=== PATIENT | male | born 1965 | race Caucasian/White ===

== ENCOUNTER 2023-02-06 20:25 | Emergency (ER) | payer BC, SELFPAY ==
--- NOTE | 2023-02-06 20:26 | ECG_ITS ---
APPROVED REPORT Exam: Resting ECG HR:87 bpm ECG Measurements Heart Rate 87 AXES GA 159 P 65 QRSd 109 QRS 38 QT 361 T 35 QTc 406 Conclusion SINUS RHYTHM INDETERMINATE AXIS INCOMPLETE RIGHT BUNDLE BRANCH BLOCK [90+ ms QRS DURATION, TERMINAL R IN V1/V2, 40+ ms S IN I/aVL/V4/V5/V6] BORDERLINE ECG UNCONFIRMED REPORT Electronically signed by : Silas Velez MD 02/07/2023 07:44:18
[2023-02-06 20:30] VITALS: BP 159/114; PULSE 86; RESP 16; TEMP 37.1; O2SAT 98; BMI 27.3
[2023-02-06 20:31] VITALS: BP 159/114; PULSE 88; RESP 21; O2SAT 98
--- NOTE | 2023-02-06 20:35 | XR_ITS ---
PROCEDURE INFORMATION: Exam: XR Chest Exam date and time: 02/06/2023 9:14 PM Age: 57 years old Clinical indication: Chest wall pain; Additional info: Cp TECHNIQUE: Imaging protocol: Radiologic exam of the chest. Views: 2 views. COMPARISON: No relevant prior studies available. FINDINGS: Lungs: Minimal basilar atelectasis. Pleural spaces: Unremarkable. No pleural effusion. No pneumothorax. Heart/Mediastinum: Unremarkable. No cardiomegaly. Bones/joints: Unremarkable. IMPRESSION: Minimal basilar atelectasis.
--- NOTE | 2023-02-06 20:35 | CT_ITS ---
PROCEDURE INFORMATION: Exam: CTA Chest With Contrast Exam date and time: 02/06/2023 9:30 PM Age: 57 years old Clinical indication: Chest wall pain; Additional info: Cp, right side TECHNIQUE: Imaging protocol: Computed tomographic angiography of the chest with contrast. 3D rendering (Not supervised by radiologist): MIP and/or 3D reconstructed images were created by the technologist. Radiation optimization: All CT scans at this facility use at least one of these dose optimization techniques: automated exposure control; mA and/or kV adjustment per patient size (includes targeted exams where dose is matched to clinical indication); or iterative reconstruction. Contrast material: ISOVUE; Contrast volume: 70 ml; Contrast route: INTRAVENOUS (IV); REPORTING DATA: Count of CT and Cardiac NM exams in prior 12 months: This patient has received 0 known CTs and 0 known cardiac nuclear medicine studies in the 12 months prior to the current study. COMPARISON: CR XR CHEST 2V 02/06/2023 9:14 PM FINDINGS: Pulmonary arteries: Mild prominence of the pulmonary vasculature in the interstitium. No PE. Aorta: Unremarkable. No aortic aneurysm. No aortic dissection. Lungs: Unremarkable. No consolidation. No masses. Pleural spaces: Unremarkable. No pneumothorax. No pleural effusion. Heart: Slight prominence of the heart. Lymph nodes: Calcified left hilar lymph nodes. Bones/joints: Mild degenerative changes of the spine. Soft tissues: Unremarkable. IMPRESSION: Findings suggesting mild fluid overload versus CHF. No PE.
--- NOTE | 2023-02-06 20:35 | PC.NURSE ---
DR. TURNER PAGED FOR ED DOCTOR
--- NOTE | 2023-02-06 20:39 | CT_ITS ---
PROCEDURE INFORMATION: Exam: CT Abdomen And Pelvis With Contrast Exam date and time: 02/06/2023 9:30 PM Age: 57 years old Clinical indication: Abdominal pain; Additional info: Abd. Pain TECHNIQUE: Imaging protocol: Computed tomography of the abdomen and pelvis with contrast. Radiation optimization: All CT scans at this facility use at least one of these dose optimization techniques: automated exposure control; mA and/or kV adjustment per patient size (includes targeted exams where dose is matched to clinical indication); or iterative reconstruction. Contrast material: ISOVUE; Contrast volume: 70 ml; Contrast route: IV; REPORTING DATA: Count of CT and Cardiac NM exams in prior 12 months: This patient has received 0 known CTs and 0 known cardiac nuclear medicine studies in the 12 months prior to the current study. COMPARISON: CR XR CHEST 2V 02/06/2023 9:14 PM FINDINGS: Heart: Mild prominence of the heart. Liver: Normal. No mass. Gallbladder and bile ducts: The gallbladder has been removed. Pancreas: Normal. No ductal dilation. Spleen: Normal. No splenomegaly. Adrenal glands: Normal. No mass. Kidneys and ureters: Normal. No hydronephrosis. Stomach and bowel: Unremarkable. No obstruction. No mucosal thickening. Appendix: Normal appendix. Intraperitoneal space: Unremarkable. No free air. No significant fluid collection. Vasculature: Slight prominence of the pulmonary vasculature. Minimal atherosclerosis. Lymph nodes: Unremarkable. No enlarged lymph nodes. Urinary bladder: Unremarkable as visualized. Reproductive: Unremarkable as visualized. Bones/joints: Unremarkable. No acute fracture. Soft tissues: Unremarkable. IMPRESSION: Possible mild fluid overload versus CHF.
--- NOTE | 2023-02-06 20:43 | [facility].EDCP ---
Discharge Plan Disposition Patient Disposition: Home, Self-Care Chief Complaint: Chest Pain Prescriptions Prescriptions: No Action No Known Home Medications Referrals Follow up/Referrals: Nikko Arce [Primary Care Provider] - See instructions Clinical Impressions Clinical Impression: Atypical chest pain, Elevated BP without diagnosis of hypertension Instructions Patient Instructions: DI for Atypical Chest Pain Discharge ED Provider: Emily (JENNIFER)Federico Chest Pain HPI General Chief Complaint: Chest Pain Stated Complaint: CP Time Seen by Provider: 02/06/23 20:43 Mode of Arrival: Ambulatory Source of Information: Patient, Spouse and Medical Record Limitations: No Limitations Description of Symptoms (Recalled from ER Triage Doc. by RN): Pt states that he woke up this morning with a sharp pain in the left chest wall. States that he went golfing and the pain has gotten worse throughout the day. Denies any nausea vomiting radiation or shortness of breath. History of Present Illness HPI narrative: since am has rt sided chest pain worse tonight - no other c/o MD complaint: chest pain Onset (ago): hour(s) Duration: intermittent Activity at onset: during rest Pain location: right chest Severity: moderate Quality: sharp Risk Factors for CAD: Family Hx of CAD Treatments prior to or on arrival for Cardiac Chest Pain: none JERRI Score for Non-Stemi Age of Patient: 50-59 years old Heart Rate: 70-89 bpm Systolic Blood Pressure: 120-139 mmhg Serum Creatinine: 1.20-1.59 mg/dl CHF [place] Class: I-No CHF Other Risk Factors: None Non-Stemi Risk Score: 94 Risk Stratification: 1-108 = Low Risk Related Data Home Medications Medication Instructions Recorded Confirmed No Known Home Medications 02/06/23 02/06/23 Allergies Allergy/AdvReac Type Severity Reaction Status Date / Time No Known Allergies Allergy Verified 02/06/23 20:[address] [facility] Disclaimer: The information contained in this section may have been updated after the patient was seen, as this information can be updated by other users. Social History Smoking Status: Current every day smoker alcohol intake: never current occupational status: employed Travel in the last 8 weeks: None ROS Obtained: Yes All systems reviewed & no additional complaints except as documented Physical Exam General General appearance: alert Head Head exam: normocephalic Eye Eye exam: Present PERRL and EOMI ENT ENT exam: Present mucous membranes moist Neck Neck exam: Present trachea midline Chest Chest inspection: Present tenderness Respiratory Respiratory exam: Absent respiratory distress Cardiovascular Cardiovascular exam: Present regular rate and systolic murmur; Absent rubs Abdominal Exam Abdominal exam: Present soft Extremities Exam Extremities exam: Present full ROM; Absent joint swelling Neurological Exam Neurological exam: Present alert, oriented X3 and CN II-XII intact; Absent motor sensory deficit Psychiatric Psychiatric exam: Present normal affect Skin Skin exam: Absent rash Medical Decision Making Medical Records Medical records reviewed: Yes I reviewed the patient's medical records. Shan Inquiry Pt receiving controlled substance: No Vital Signs: 02/06/23 20:30 02/06/23 20:31 02/06/23 21:00 Temperature 98.8 F Temperature Source Oral Pulse Rate 88 85 Pulse Rate [Apical] 86 Respiratory Rate 16 21 22 Blood Pressure 159/114 H 165/105 H Blood Pressure [Right Arm] 159/114 H Blood Pressure Mean 129 133 Blood Pressure Mean [Right Arm] 129 Blood Pressure Source [Right Arm] Automatic Cuff Blood Pressure Position [Right Arm] Sitting 02 Sat by Pulse Oximetry 98 98 98 Oxygen Delivery Method Room Air 02/06/23 22:00 02/06/23 22:30 02/06/23 23:00 Temperature Temperature Source Pulse Rate 79 71 77 Pulse Rate [Apical] Respiratory Rate 20 21 21 Blood Pressure 160/107 H 157/101 H 154/93 H B
[2023-02-06 20:44] LABS: Basophils # 0.1 K/mm3 (0-0.2); Basophils % 0.8 % (0.1-2.0); Eosinophils # 0.3 K/mm3 (0.0-0.4); Eosinophils % 1.9 % (0.1-12.0); Hematocrit 49.6 % (42.0-52.0); Hemoglobin 16.2 g/dL (14.1-18.0); Lymphocytes # 3.7 K/mm3 (0.7-4.5); Lymphocytes % 28.6 % (10-50); Mean Corpuscular HGB Conc 32.6 g/dL (31.8-35.4); Mean Corpuscular Hemoglobin 28.8 pg (27.0-31.2); Mean Corpuscular Volume 88.3 fl (80-94); Mean Platelet Volume 6.8 fl (7.4-10.4); Monocytes # 0.6 K/mm3 (0.1-1.0); Monocytes % 4.6 % (1.7-9.3); Neutrophils # 8.3 K/mm3 (1.8-7.8); Neutrophils % 64.3 % (37.0-80.0); Platelet Count 349 K/mm3 (142-424); Red Blood Count 5.62 M/mm3 (4.60-6.20); Red Cell Distribution Width 13.7 % (11.5-17.5); White Blood Count 12.9 K/mm3 (4.8-10.8)
[2023-02-06 20:47] LABS: Chloride 99 mmol/L (98-107); Potassium 4.1 mmoL/L (3.5-5.1); Sodium 139 mmol/L (136-145)
[2023-02-06 20:49] LABS: Blood Urea Nitrogen 15 mg/dl (9-20); Creatinine Clearance Estimated 83 mL/min (50-200); Estimated Glomerular Filt Rate 57 ml/min (>60); GFR (African American) 69 ML/MIN (>60)
[2023-02-06 20:50] LABS: Alanine Aminotransferase 23 U/L (12-78); Albumin Level 4.3 g/dl (3.5-5.0); Albumin/Globulin Ratio 1.2 (1.1-1.8); Alkaline Phosphatase 121 U/L (38-126); Amylase 83 U/L (30-110); Anion Gap 15.1 mEq/L (5-15); Aspartate Amino Transferase 30 U/L (17-59); Bilirubin,Total 0.6 mg/dl (0.2-1.3); Calcium 9.6 mg/dl (8.4-10.2); Carbon Dioxide 29 mmol/L (22.0-30.0); Globulin 3.6 g/dL (1.3-3.2); Glucose 99 mg/dl (74-100); Lipase 72 U/L (23-300); Total Protein,Serum 7.9 g/dl (6.3-8.2)
[2023-02-06 21:00] VITALS: BP 165/105; PULSE 85; RESP 22; O2SAT 98
[2023-02-06 21:05] LABS: Troponin I < 0.01 ng/ml (0.00-0.034)
[2023-02-06 22:00] VITALS: BP 160/107; PULSE 79; RESP 20; O2SAT 98
[2023-02-06 22:30] VITALS: BP 157/101; PULSE 71; RESP 21; O2SAT 98
[2023-02-06 23:00] VITALS: BP 154/93; PULSE 77; RESP 21; O2SAT 96
[2023-02-06 23:19] LABS: NT Pro Brain Natriuretic Pep. 87.3 pg/mL (0-125)
--- NOTE | 2023-02-06 23:22 | PC.NURSE ---
second trop sent to lab at this time
[2023-02-06 23:45] LABS: Troponin I < 0.01 ng/ml (0.00-0.034)
[2023-02-07 00:38] VITALS: BP 154/93; PULSE 78; RESP 18; TEMP 36.6; O2SAT 99
== END 2023-02-07 00:49 | disposition home or self-care (01) ==
PROVIDERS: Emergency Provider Emergency Medicine; PCP Family Medicine
DX: R07.89 Other chest pain (principal); R03.0 Elevated blood-pressure reading, without diagnosis of hypertension; F17.200 Nicotine dependence, unspecified, uncomplicated
CPT/HCPCS: 71046; 71275; 74177; 80053; 82150; 83690; 83880; 84484; 85025; 93005; 96361; 96374; 99285; Q9967

== ENCOUNTER 2025-05-09 14:42 | Outpatient (CLI) | payer BC, SELFPAY ==
--- NOTE | 2025-05-09 14:56 | XR_ITS ---
FINAL REPORT CLINICAL HISTORY: Evaluation of Left Foot Pain swelling both sides COMPARISON: None FINDINGS: LEFT FOOT Three views of the left foot demonstrate no acute fracture or dislocation. There is a large accessory navicular. A moderate plantar spur is noted. The visualized joint spaces are normally aligned. The soft tissues are unremarkable. IMPRESSION: No acute bony abnormality. Reviewed, Interpreted and Dictated by Dinesh Chang MD Transcribed by Mara Scott Authenticated and . [facility]
== END 2025-05-09 23:59 | disposition home or self-care (01) ==
LOC: RAD 14:43
PROVIDERS: PCP Family Medicine; Visit Provider Nurse Practitioner
DX: M79.672 Pain in left foot (principal); M79.89 Other specified soft tissue disorders
CPT/HCPCS: 73630